=== PATIENT | male | born 1950 | race Caucasian/White ===

== ENCOUNTER 2021-01-19 09:01 | Emergency (ER) | payer MEDICARE, OTHER ==
[2021-01-19 10:29] LABS: RED BLOOD COUNT 4.19 M/UL (4.20-5.50); WHITE BLOOD COUNT 6.2 K/UL (4.5-11.0)
[2021-01-19 10:45] LABS: BUN/CREATININE RATIO 15 (0-10)
== END 2021-01-19 11:36 | disposition home or self-care (01) ==
LOC: ER1 09:01
PROVIDERS: Physician Assistant
DX: U07.1 COVID-19 (principal); F17.220 Nicotine dependence, chewing tobacco, uncomplicated
CPT/HCPCS: 71045; 80053; 85025; 99283